=== PATIENT | male | born 1980 | race Caucasian/White ===

== ENCOUNTER 2021-03-14 14:00 | Outpatient (RCR) | payer OTHER, SELFPAY | END 2021-05-08 09:50 | disposition home or self-care (01) | LOC: HO.PT 14:00 | PROVIDERS: PCP Physician Assistant Medical; Visit Provider Physician Assistant Medical | DX: M25.561 Pain in right knee (principal) | CPT/HCPCS: 97014; 97110; 97112; 97140; 97161 ==

== ENCOUNTER → 2021-09-01 08:57 | Outpatient (REF) | payer OTHER, SELFPAY ==
--- NOTE | 2021-09-01 09:01 | CA_ITS ---
Acquisition Time: 2021-09-01 10:06:51 Total Exercise Time: 00:11:27 Test Indications: CP Medications: SEE CHART Protocol: PHU Max HR: 155 BPM 85% of Pred: 181 BPM Max BP: 178/072 mmHG Max Work Load: 13.4 METS Exercise stress test with exercise 11 min 27 sec of Phu protocol, achieving 86% MPHR, without anginal symptoms, with isolated PVCs and ventricular cuplets noted during stage 3 and 4, with normotensive response to exercise, without EKG changes meeting criteria for ischemia. Test reviewed with Dr Monsalve He reports having episodes of sudden rapid heart palpitations at times at home. PVCs are noted during his exercise. Call placed to PCP office with report and recommendation for a 30 day Cardiac event monitor for further evaluation. Referred By: Avelina Fink Overread By: REUBEN HAMEED
== END ==
LOC: HO.CARD 08:57
PROVIDERS: PCP Physician Assistant Medical; Visit Provider Family Medicine
DX: R07.9 Chest pain, unspecified (principal)
CPT/HCPCS: 93017

== ENCOUNTER 2021-09-15 18:47 | Outpatient (REF) | payer OTHER, SELFPAY ==
--- NOTE | ~2021-09-15 | MR_ITS ---
EXAMINATION: MRI RIGHT SHOULDER WITHOUT CONTRAST CLINICAL INFORMATION: Question rotator cuff tear. Decreased range of motion. Recent injury. COMPARISON: None. TECHNIQUE: MR images of the shoulder were obtained on a 1.5 Pebbles high-field strength scanner without intravenous contrast material. FINDINGS: ROTATOR CUFF: Intact. No muscle atrophy or fatty infiltration. BICEPS: Normal CORACOACROMIAL ARCH: The undersurface of the acromion is curved with no subacromial spur. Minimal acromioclavicular osteoarthritis. No significant subacromial subdeltoid bursal fluid. LABRUM/CAPSULE: A tear of the anteroinferior glenoid labrum propagates from the 2 o'clock position through the 5 o'clock position with irregular, intermediate signal intensity, and ill-defined margins, likely due to edema signal and maceration. Posterosuperiorly on images 11 and 12/24 of series 2, there is a separate band of abnormal increased signal intensity at the posterosuperior glenoid labrum which undercuts the articular cartilage and labral attachment to the glenoid rim and may correspond to a separate delaminating labral injury without significant displacement. The middle glenohumeral ligament and inferior glenohumeral ligament are both thickened and edematous, most consistent with sprains. No discrete tears are identified. Specifically, no appreciable humeral avulsion injuries are identified. GLENOHUMERAL JOINT/MARROW: As noted above, there is abnormal signal at the posterosuperior glenoid rim which undercuts the labral attachment and may correspond to focal delamination of the articular cartilage and glenoid labrum and this region. No discrete chondral defects. There is mild surrounding marrow edema signal. No discrete fractures are identified. Minimal subcortical cystic changes at the humeral head posterosuperiorly. MR/MR shoulder LT wo con IMPRESSION: 1. Intact rotator cuff. 2. Irregular tear of the anteroinferior glenoid labrum. 3. Glenohumeral capsular edema and thickening is most pronounced at the middle and inferior glenohumeral ligaments and most consistent with a capsular strain. No tears are identified. Adhesive capsulitis can also have this appearance. 4. Probable focal nondisplaced delaminated tear at the posterosuperior glenoid labrum, possibly concealed without extension to the articular surface.
== END 2021-09-15 18:48 | disposition home or self-care (01) ==
LOC: HO.MRI 18:47
PROVIDERS: Visit Provider Family Medicine
DX: M25.512 Pain in left shoulder (principal)
CPT/HCPCS: 73221

== ENCOUNTER → 2021-09-28 14:06 | Outpatient (REF) | payer OTHER, SELFPAY ==
--- NOTE | 2021-09-28 14:11 | HM_ITS ---
TEST PERFORMED: Cardiac event monitoring. ENROLLMENT PERIOD: 09/28/2021, to 10/28/2021; 30 days. REQUESTING PHYSICIAN: Dr. Monsalve. INDICATION: Palpitations. FINDINGS: In the above monitoring period, underlying rhythm was sinus. Rates ranged from 51 to 132 beats per minute. PACs noted with a very brief run; otherwise, nothing sustained. One episode of junctional rhythm, rate of 66/min during morning hours. The patient's symptoms including chest pain, palpitations correlated with sinus rhythm and mild sinus bradycardia. On 1 instance of racing/fluttering, correlates with the supraventricular ectopy. CONCLUSION: Study positive for underlying sinus rhythm, infrequent supraventricular ectopy. Otherwise unremarkable. Kilo Abdalla MD HS/XAVI / [id number] MTDD
== END ==
LOC: HO.CARD 14:06
PROVIDERS: Visit Provider Family Medicine
DX: R00.2 Palpitations (principal)
CPT/HCPCS: 93270

== ENCOUNTER 2022-01-25 08:10 | Emergency (ER) | payer OTHER, SELFPAY ==
--- NOTE | ~2022-01-25 | XR_ITS ---
EXAMINATION: XR SHOULDER, LEFT CLINICAL INFORMATION: Left shoulder pain status post fall. COMPARISON: None TECHNIQUE: AP external rotation, Grashey, scapular Y, and axillary views of the left shoulder. FINDINGS: The bones and soft tissues are normal. No fracture. Glenohumeral and acromioclavicular alignment is anatomic with normal joint space. No abnormal soft tissue calcifications. XR/XR shoulder LT min 2V IMPRESSION: Unremarkable left shoulder.
--- NOTE | ~2022-01-25 | XR_ITS ---
EXAMINATION: CR X-RAY HAND AND WRIST LEFT CLINICAL INFORMATION: Left hand and wrist pain status post fall. COMPARISON: None TECHNIQUE: 4 views of the left hand and wrist are obtained. An indicator arrow points to the fifth metacarpal. FINDINGS: There is no acute fracture or dislocation. The joint spaces are unremarkable. The carpal bones are normally aligned. The distal radius and ulna are intact. The soft tissues are unremarkable. XR/XR hand wrist LT IMPRESSION: Unremarkable left hand and wrist.
[2022-01-25 08:20] VITALS: BP 118/80; PULSE 63; RESP 18; TEMP 36.2; O2SAT 98; BMI 24.4
--- NOTE | 2022-01-25 09:40 | ED.GENADULT ---
HPI - General Adult General Chief complaint: Fall Stated complaint: fall l hand and shoulder inj Time Seen by Provider: 01/25/22 09:28 Source: patient Limitations: no limitations History of Present Illness HPI narrative: 41-year-old male who states last night he slipped on his regular home falling onto his left hand and shoulder. 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 Patient is concerned about his left hand that increases pain with range of motion. Pain 7/10. No prior injuries to the left hand symptoms mild to moderate. Patient denies loss consciousness recalls all events of the fall no other complaints at this time. Related Data Allergies Allergy/AdvReac Type Severity Reaction Status Date / Time clindamycin Allergy Rash Verified 01/25/22 08:23 Review of Systems Constitutional: Constitutional: Denies chills, Denies fever(s) and Denies headache(s) ENT: Denies headache(s) Cardiovascular: Cardiovascular: Denies chest pain Gastrointestinal: Gastrointestinal: Denies nausea and Denies vomiting Musculoskeletal: Musculoskeletal: Reports joint swelling Comments: Left shoulder pain left hand pain Neurologic: Denies headache(s) [facility] Social History Social History Advance Directives: No Physical Exam ED Vital Signs: Vital Signs - 24 hr 01/25/22 08:20 Temperature 97.2 F Pulse Rate 63 Respiratory Rate 18 Blood Pressure 118/80 Pulse Oximetry 98 Oxygen Delivery Method Room Air BMI result Body Mass Index 24.4 vital signs have been reviewed as normal and appeared to be correct. Blood pressure normal. Heart rate normal. Respiration rate normal. Temperature normal. Oxygen saturation normal. Appearance: Alert. Oriented X3. No acute distress. Head: Normal external exam. Normocephalic. Atraumatic. Eyes: PERRLA. EOMI. Conjunctiva and sclera normal. Eyelids normal. ENT: Pharynx normal. Uvula midline. Moist mucous membranes. CVS: Heart regular rate and rhythm no murmurs and rubs Respiratory: Breath sounds are clear to auscultation bilaterally. No accessory muscle use noted. Back: Full range of motion Skin: No ecchymosis noted over the left hand dorsum Extremities: Positive tenderness to the left hand pain increases with range of motion no obvious deformity pulses sensation intact positive diffuse tenderness to the left shoulder full range of motion. Neuro: Oriented X 3. No motor deficit. No sensory deficit. Reflexes normal. Course Course Course Narrative: Left shoulder fracture Contusion Left hand fracture Contusion Left hand sprain Medical Decision Making Imaging Data hand: Radiologist's impression: ? Chart Viewer Orders Diagnostics Subcategory All Activity ??:?? All Time ??:?? All Subcategories Filter Laboratory Imaging Microbiology Pathology Blood Bank Tests Cardiovascular Other Specialty DATE TYPE STATUS REF RANGE/AUTHOR Hx Today 08:50 Shoulder X-Ray Signed Leodan Smith Today 08:50 Hand/Wrist X-Ray Signed Leodan Smith 10/28/21 00:00 Diagnostic Report, External Cardiovascular Disease Kilo Abdalla STEFANIE - end of study report 09/15/21 19:40 Shoulder MRI Signed Bk Walters Ryan J ED 41, M?1980 MRN#? [id number] REG ER,?Emergency Minor Care??[facility] [place] Bed 5?-EMC5? 6ft 81.647kg BMI: 24.4kg/m? Fall Acc#? [id number] Resus Status Not Ordered No Hx Avail Allergies clindamycin Rash Problems No Data to Display Home Meds Prescription Monitoring Program No Data to Display Triage Note mechanical fall last night- left wrist and shoulder pain ED EMS Hand-Off No Data to Display Orders Snapshot IMAGING AND XRAYS XR shoulder LT min 2V Stat Completed XR hand wrist LT Stat Completed My Widget No Data to Display Lab Results Last 24 Hrs Most Recent No Data to Display Diagnostic Imaging Reports Shoulder X-Ray Signed Today Hand/Wrist X-Ray Signed Today Diagnostic Departmental Reports No Data to Display Vitals - Initial & Most Recent CURRENT Today 08:20 BP 118/80 Pulse 63 Resp 18 Temp 97.2 F O2 Sat 98 O2 Delivery Room Air Diagnostics Reports Bk Hand??41??M??1980 ? Allergy/Adv: clindamycin Close Shoulder X-Ray (Signed) Leodan Smith - 01/25/22 Hand/Wrist X-Ray (Signed) Leodan Smith - 01/25/22 Diagnostic Report, External Cardiovascular Disease Kilo Abdalla 10/28/21 Shoulder MRI (Signed) Bk Walters - 09/15/21 Launch?Image [address] [address] XRay Report Signed Patient: Bk Hand MR#: [id number] : 1980 Acct:[id number] Age/Sex: 41 / M ADM Date: 01/25/22 Loc: HO.ED Attending Dr: Ordering Physician: Generic ED Physician Date of Service: 01/25/22 Procedure(s): XR hand wrist LT Accession Number(s): [id number] cc: Generic ED Physician~ EXAMINATION: CR X-RAY HAND AND WRIST LEFT CLINICAL INFORMATION: Left hand and wrist pain status post fall.? COMPARISON: None? TECHNIQUE: 4 views of the left hand and wrist are obtained. An indicator arrow points to the fifth metacarpal.? FINDINGS: There is no acute fracture or dislocation. The joint spaces are unremarkable. The carpal bones are normally aligned. The distal radius and ulna are intact. The soft tissues are unremarkable.? XR/XR hand wrist LT IMPRESSION: Unremarkable left hand and wrist.? Dictated By: Leodan Smith MD Signed By: <Electronically signed by Leodan Smith MD in OV> 01/25/22 0901 DD/ 0850 TD/TT:? Complaint Evaluation Officer: EMI shoulder: Radiologist's impression: ? Chart Viewer Orders Diagnostics Subcategory All Activity ??:?? All Time ??:?? All Subcategories Filter Laboratory Imaging Microbiology Pathology Blood Bank Tests Cardiovascular Other Specialty DATE TYPE STATUS REF RANGE/AUTHOR Hx Today 08:50 Shoulder X-Ray Signed Leodan Smith Today 08:50 Hand/Wrist X-Ray Signed Leodan Smith 10/28/21 00:00 Diagnostic Report, External Cardiovascular Disease Kilo Abdalla [facility] [place] end of study report 09/15/21 19:40 Shoulder MRI Signed Bk Walters Ryan J ED 41, M?1980 MRN#? [id number] REG ER,?Emergency Minor Care??[facility] [place] Bed 5?-EMC5? 6ft 81.647kg BMI: 24.4kg/m? Fall Acc#? [id number] Resus Status Not Ordered No Hx Avail Allergies clindamycin Rash Problems No Data to Display Home Meds Prescription Monitoring Program No Data to Display Triage Note mechanical fall last night- left wrist and shoulder pain ED EMS Hand-Off No Data to Display Orders Snapshot IMAGING AND XRAYS XR shoulder LT min 2V Stat Completed XR hand wrist LT Stat Completed My Widget No Data to Display Lab Results Last 24 Hrs Most Recent No Data to Display Diagnostic Imaging Reports Shoulder X-Ray Signed Today Hand/Wrist X-Ray Signed Today Diagnostic Departmental Reports No Data to Display Vitals - Initial & Most Recent CURRENT Today 08:20 BP 118/80 Pulse 63 Resp 18 Temp 97.2 F O2 Sat 98 O2 Delivery Room Air Diagnostics Reports Bk Hand??41??M??1980 ? Allergy/Adv: clindamycin Close Shoulder X-Ray (Signed) Leodan Smith - 01/25/22 Hand/Wrist X-Ray (Signed) Leodan Smith - 01/25/22 Diagnostic Report, External Cardiovascular Disease Kilo Abdalla 10/28/21 Shoulder MRI (Signed) Bk Walters - 09/15/21 Launch?Image [place] [address] XRay Report Signed Patient: Bk Hand MR#: [id number] : 1980 Acct:[id number] Age/Sex: 41 / M ADM Date: 01/25/22 Loc: .ED Attending Dr: Ordering Physician: Generic ED Physician Date of Service: 01/25/22 Procedure(s): XR shoulder LT min 2V Accession Number(s): [id number] cc: Generic ED Physician~ EXAMINATION: XR SHOULDER, LEFT CLINICAL INFORMATION: Left shoulder pain status post fall.? COMPARISON: None? TECHNIQUE: AP external rotation, Grashey, scapular Y, and axillary views of the left shoulder. FINDINGS: The bones and soft tissues are normal. No fracture. Glenohumeral and acromioclavicular alignment is anatomic with normal joint space. No abnormal soft tissue calcifications.? XR/XR shoulder LT min 2V IMPRESSION: Unremarkable left shoulder. Dictated By: Leodan Smith MD Signed By: <Electronically signed by Leodan Smith MD in OV> 01/25/22 0859 DD/ 0850 TD/TT:? Complaint Evaluation Officer: Discharge Plan Discharge Clinical Impression: Contusion of hand, Sprain and strain of left hand, Contusion of left shoulder Patient Disposition: Home, Self-Care Instructions: Contusion in Adults (ED) Additional Instructions: X-ray of your left hand shoulder read by radiology is negative. Symptoms are consistent with a left hand left shoulder contusion and possible sprain of left hand rest ice elevation [id number] Motrin and/or Tylenol for pain. Follow-up with primary care symptoms persist with possible referral to orthopedics. Referrals: Fred Pulido MD [Physician] -
== END 2022-01-25 10:07 | disposition home or self-care (01) ==
PROVIDERS: Emergency Provider Emergency Medicine Emergency Medical Services; PCP Physician Assistant Medical
DX: S60.222A Contusion of left hand, initial encounter (principal); S40.012A Contusion of left shoulder, initial encounter; M79.602 Pain in left arm; W01.0XXA Fall on same level from slipping, tripping and stumbling without subsequent striking against object, initial encounter; Y93.9 Activity, unspecified; Y92.009 Unspecified place in unspecified non-institutional (private) residence as the place of occurrence of the external cause; Y99.9 Unspecified external cause status
CPT/HCPCS: 73030; 73110; 73130; 99283

== ENCOUNTER 2022-04-13 13:00 | Outpatient (RCR) | payer OTHER, SELFPAY ==
[2021-08-21 13:03] VITALS: BP 126/72; PULSE 73; O2SAT 97
== END 2022-06-13 07:35 | disposition home or self-care (01) ==
LOC: HO.PT 13:00
PROVIDERS: PCP Physician Assistant Medical; Visit Provider Physician Assistant
DX: M25.512 Pain in left shoulder (principal)
CPT/HCPCS: 97033; 97035; 97110; 97112; 97140; 97162; 97530

== ENCOUNTER 2023-04-08 08:49 | Outpatient (AMB) | payer OTHER, SELFPAY ==
--- NOTE | 2023-04-08 09:22 | A.OFFVIS_ITS ---
Intake Intake Visit Reasons: hydrocele Intake Note: NEW Patient presents today to established treatment for Hydrocele: Meds- None Allergies to Antibiotic- Clindamycin Blood Thinner- None Transplant Nurse Required: No Accompanied by: Self / Same As Patient Allergies clindamycin Allergy (Verified 04/08/23 09:28) Rash HPI HPI Comments History of Present Illness Details Bk is a 42 year old male who is here for evaluation for scrotal swelling The patient denies urinary symptoms of daytime urinary frequency, nocturia, hematuria, or dysuria history of left hydrocele, sp left hydrocelectomy 2014. States noticed right scrotal swelling about 2 years ago, no testicular pain had US by PCP and was told mild right hydrocele. He wants a vasectomy, one child, son about age 7. Vasectomy procedure was discussed at length with the patient. He was informed th at vasectomy is a safe, permanent, and effective form of control but there are risks involved. It may involve risk of hematoma, procedure failure which is rare, sperm granuloma which may cause mild pain, and congestion which may cause sense of pressure and generally resolves after several weeks. Also discussed is the reported post vasectomy pain syndrome with chronic testicular pain which is uncommon <5%. The patient was advised that it is necessary to use other types of control methods like condom for > 12 weeks and until semen is examined for analysis to make sure there is no more sperm in the semen which is done after 12 weeks post vasectomy. UA--leuk neg, blood neg Plan: Scrotal US. telehealth fu to review results, currently denies symptoms from hydrocele vasectomy consent signed, pt agrees to have done in the office with Dr. Martin [facility] Medical History (Updated 04/08/23 @ 10:28 by Alena Batres MD) Hydrocele Surgical History History of hydrocelectomy Hx of knee surgery Family History Father No problems noted. Mother No problems noted. Social History Alcohol intake: current Alcohol intake frequency: a few times a month Patient Tobacco Use Status: Never used Tobacco Review of Systems Const All systems reviewed & are unremarkable except as noted in HPI and below Reports no additional complaints Eyes Reports no additional complaints ENT Reports no additional complaints Card Denies dyspnea Resp Denies cough and Denies dyspnea GI Reports no additional complaints Musc Reports no additional complaints Skin/Breast Denies rash and Denies unusual bruising Neuro Reports no additional complaints Psych Reports no additional complaints Endo Reports no additional complaints Jacinto/Lymph Reports no additional complaints Aller/Immun Reports no additional complaints Physical Exam Const General: healthy appearing, no acute distress and well developed Orientation/consciousness: patient oriented x3 HEENT Head: Yes normocephalic and Yes atraumatic Eyes Conjunctivae: conjunctivae normal Neck Neck: Yes normal visual inspection Chest Chest palpation & inspection: normal inspection of the chest Resp Effort & Inspection: normal respiratory effort Cardio Rate: regular rate GI Inspection: Yes normal to inspection Palpation (GI): Soft to palpation Other: Right scrotal swelling no signs of cellulitis, nontender prostate deferred Penis: normal penis and circumcised Skin General skin exam: no rashes or lesions noted Neuro General: patient oriented x3 Extrem General: No pedal edema Psych Appearance: grossly normal Affect: normal affect Results AMB Urinalysis, Automated UA Leukoctes 0 Brisa/uL Last Edit by ALEX Hilliard on 04/08/23 09:31 UA Nitrite Negative Last Edit by ALEX Hilliard on 04/08/23 09:31 UA Urobilinogen 0.2 mg/dL Last Edit by ALEX Hilliard on 04/08/23 09:3 1 UA Protein 0 mg/dL Last Edit by ALEX Hilliard on 04/08/23 09:31 UA pH 6.5 Last Edit by ALEX Hilliard on 04/08/23 09:31 UA Blood 0 Elfego/uL Last Edit by ALEX Hilliard on 04/08/23 09:31 UA Specific [place] 1.010 Last Edit by ALEX Hilliard on 04/08/23 09: 31 UA Ketone Negative Last Edit by ALEX Hilliard on 04/08/23 09:31 UA Bilirubin 0 mg/dL Last Edit by ALEX Hilliard on 04/08/23 09:31 UA Glucose 0 mg/dL Last Edit by ALEX Hilliard on 04/08/23 09:31 Results Reviewed Results Reviewed: Laboratory Last Values Urine pH (Auto) 6.5 04/08/23 09:30 Specific [place] (Auto) 1.010 04/08/23 09:30 Urine Protein (Auto) 0 mg/dL 04/08/23 09:30 Glucose (UA)(Auto) 0 mg/dL 04/08/23 09:30 Urine Ketones (Auto) Negative 04/08/23 09:30 Urine Blood (Auto) 0 Elfego/uL 04/08/23 09:30 Urine Nitrite (Auto) Negative 04/08/23 09:30 Urine Bilirubin (Auto) 0 mg/dL 04/08/23 09:30 Urine Urobilinogen (Auto) 0.2 mg/dL 04/08/23 09:30 Leukocyte Esterase (Auto) 0 Brisa/uL 04/08/23 09:30 Assessment & Plan Assessment & Plan (1) Hydrocele: Code(s): N43.3 - Hydrocele, unspecified (2) Scrotal swelling: Code(s): N50.89 - Other specified disorders of the male genital organs (3) Vasectomy evaluation: Code(s): Z30.09 - Encounter for other general counseling and advice on contraception (4) Anxiety about health: Code(s): R45.89 - Other symptoms and signs involving emotional state Plan Scrotal US. telehealth fu to review results, currently denies symptoms from hydrocele vasectomy consent signed, pt agrees to have done in the office with Dr. Martin Orders: Orders AMB Urinalysis Automated Today Z13.9 - Encounter for screening, unspecified US scrotum Today N43.3 - Hydrocele, unspecified, N50.89 - Other specified disorders of the male genital organs Patient Instructions: The patient had an opportunity to ask questions regarding treatment plan. All questions were answered. Laboratory studies and physical exam results were discussed and reviewed in detail. No major barriers to understanding were identified. The patient expressed understanding and agreement with the above treatment plan. The patient is aware they should contact our office by phone for worsening of their current condition or the appearance of new symptoms. Compliance is encouraged with any medications and followup testing that is ordered. It is a privilege to be allowed the opportunity to participate in the urologic care of your patient. If you have any questions or concerns regarding treatment for the above conditions please do not hesitate to contact me. The office telephone contact is [phone]. This note is constructed in part using voice recognition software. While every effort has been made to ensure accuracy sweeper driver errors may have been included. Yours sincerely, Alena Batres MD Coding Level of Care Code New Pt Level 4 (33865) Diagnoses Hydrocele N43.3 Scrotal swelling N50.89 Vasectomy evaluation Z30.09 Anxiety about health R45.89
== END 2023-04-08 10:26 | disposition home or self-care (01) ==
PROVIDERS: PCP Physician Assistant Medical; Visit Provider Urology
DX: N43.3 Hydrocele, unspecified (principal); N50.89 Other specified disorders of the male genital organs; Z30.09 Encounter for other general counseling and advice on contraception; R45.89 Other symptoms and signs involving emotional state; Z13.9 Encounter for screening, unspecified
CPT/HCPCS: 99204

== ENCOUNTER → 2023-04-08 08:49 | Outpatient (BNVA) | payer OTHER, SELFPAY | PROVIDERS: PCP Physician Assistant Medical; Visit Provider Urology | DX: N43.3 Hydrocele, unspecified (principal); N50.89 Other specified disorders of the male genital organs; R45.89 Other symptoms and signs involving emotional state | CPT/HCPCS: 81003 ==

== ENCOUNTER 2023-04-29 16:38 | Emergency (ER) | payer OTHER, SELFPAY ==
--- NOTE | ~2023-04-29 | XR_ITS ---
EXAMINATION: 1. RADIOGRAPHS RIGHT KNEE 2. RADIOGRAPHS RIGHT TIBIA/FIBULA CLINICAL INFORMATION: Skiing accident COMPARISON: None TECHNIQUE: 4 views of the right knee and 2 views of the right tibia and fibula were obtained. FINDINGS: Comminuted, mildly displaced tibial plateau fracture. There is a small associated suprapatellar joint effusion. No gross fracture of the visualized distal femur. No fracture of the fibula. There is soft tissue swelling of the knee. XR/XR tibia fibula RT 2V IMPRESSION: Comminuted, mildly displaced tibial plateau fracture.
--- NOTE | ~2023-04-29 | XR_ITS ---
EXAMINATION: 1. RADIOGRAPHS RIGHT KNEE 2. RADIOGRAPHS RIGHT TIBIA/FIBULA CLINICAL INFORMATION: Skiing accident COMPARISON: None TECHNIQUE: 4 views of the right knee and 2 views of the right tibia and fibula were obtained. FINDINGS: Comminuted, mildly displaced tibial plateau fracture. There is a small associated suprapatellar joint effusion. No gross fracture of the visualized distal femur. No fracture of the fibula. There is soft tissue swelling of the knee. XR/XR knee RT 3V IMPRESSION: Comminuted, mildly displaced tibial plateau fracture.
--- NOTE | 2023-04-29 17:26 | ED.LOWEXIN ---
HPI - Extremity Injury (Lower) General Chief Complaint: Extremity Injury, Lower Stated Complaint: R knee pain, ski injury Time Seen by Provider: 04/29/23 17:59 Source: patient Mode of arrival: wheelchair Limitations: no limitations History of Present Illness HPI Narrative: Patient is a 43-year-old male with no reported past medical history presenting to emergency department for evaluation of right knee pain after a fall while skiing at a high speed prior to arrival. Has been unable to ambulate since the incident. Presented with a temporary splint for immobilization in place by skin piler. Denies numbness tingling or cold sensation to the foot. Related Data Previous Rx's Medication Instructions Recorded oxycodone 5 mg tablet 5 mg PO Q6H PRN pain #14 tabs 04/29/23 Allergies Allergy/AdvReac Type Severity Reaction Status Date / Time clindamycin Allergy Rash Verified 04/29/23 17:28 Review of Systems Review of Systems: Yes all other systems are reviewed and are negative PMFSH Past Medical History Attestation statement: The following information was validated with the patient. Source: old records reviewed Medical History Hydrocele Surgical History History of hydrocelectomy Hx of knee surgery Family History Family History Father No problems noted. Mother No problems noted. Social History Social History Alcohol intake: current Alcohol intake frequency: 0-2 drinks per day Patient Tobacco Use Status: Never used Tobacco Smoked in Last 30 Days: No Use of substances other than those prescribed or required for medical reasons: No Advance Directives: No Advance Directives Information Provided: No Physical Exam Vital Signs: Vital Signs: Last Vital Signs Temp 98 F 04/29/23 19:46 Pulse 76 04/29/23 19:46 Resp 19 04/29/23 19:46 BP 135/72 04/29/23 19:46 Pulse Ox 99 04/29/23 19:46 O2 Del Method Room Air 04/29/23 19:46 BMI result Body Mass Index 25.1 Appearance: Alert.?Oriented to person, place and time. No acute distress.?Normal affect. Neck: Normal inspection.? Neck supple.?? CVS: Heart sounds normal. Normal heart rate and rhythm.? Pulses normal.?? Respiratory: No respiratory distress.? Lung sounds clear to auscultation bilaterally?? Abdomen: Soft and non-tender. Normoactive bowel sounds. Skin: Skin warm and dry.? Normal skin color.? Extremities: No lower extremity edema.? No calf ttp. 2+ DP/PT pulse bilaterally. Tenderness upon palpation of the infrapatellar region over the tibial plateau Neuro: Moves all extremities spontaneously except for the right lower extremity. Sensation intact bilaterally. 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 Hasnt ambulated since incident In wheelchair, splint applied by skin piler. difficult to examine in triage XRs ordered Full HPI, ROS and PE to be performed by primary ED provider. Medications Administered Discontinued Medications Generic Name Dose Route Start Last Admin Trade Name Freq PRN Reason Stop Dose Admin Acetaminophen 650 mg 04/29/23 18:48 04/29/23 18:59 Acetaminophen 325 Mg Tablet PO 04/29/23 18:49 650 mg ONCE ONE Administration Oxycodone HCl 5 mg 04/29/23 18:48 04/29/23 19:00 Oxycodone Hcl Immed Release 5 Mg Tablet PO 04/29/23 18:49 5 mg ONCE ONE Administration Medical Decision Making Medical Decision Making MDM Narrative: Patient is a 43-year-old male with no reported past medical history presenting to emergency department for evaluation of traumatic right knee pain, XR imaging was obtained to evaluate for fracture/dislocation, comminuted tibial plateau fracture, mildly displaced, placed in a posterior long leg splint and extremity remained neurovascularly intact distally after application. Crutches provided. Differential Diagnosis Differential Diagnoses: The differential diagnosis associated with the presentation includes (Fracture, dislocation, ligamentous injury, sprain) Independent Interpretation I performed an independent interpretation of an: Plain X-Ray (Tibial plateau fracture) Radiology Impression Discussion of test interpretation with radiology: I have reviewed the radiologist's reading. Radiologist Impression: FINDINGS: Comminuted, mildly displaced tibial plateau fracture. There is a small associated suprapatellar joint effusion. No gross fracture of the visualized distal femur. No fracture of the fibula. There is soft tissue swelling of the knee. XR/XR tibia fibula RT 2V IMPRESSION: Comminuted, mildly displaced tibial plateau fracture. Independent Historian Clinical information obtained from an independent historian. History obtained from or confirmed by: Spouse (Present who confirms history) External Record Review External record reviewed: Other ([employer]) Prescription Management I considered prescription management with: Pain Medication Procedures Orthopedic Splinting/Casting Injury #1: Side: right Lower Extremity Immobilizer: posterior splint Other Orthopedic Equipment: crutches Additional Comments: Remained neurovascularly intact distally after application Critical Care Time Critical Care Time Critical Care Time: Yes Total Critical Care Time: 35 Attestation: I personally attest to this critical care time spent taking care of the patient exclusive of all other billable procedures was approximately 35 minutes including initial evaluation of patient, ordering tests, x-ray interpretation, pain management and re-evaluation, documentation, re-evaluation. Discharge Plan Discharge Clinical Impression: Closed fracture of tibial plateau Patient Disposition: Home, Self-Care Instructions: Crutch Instructions (ED) Additional Instructions: You can take ibuprofen 200 mg, 3 tablets (600mg) every 6-8 hours as needed for pain, in addition to Tylenol 500 mg, 2 tablets (1,000mg) every 4-6 hours as needed for pain, but not to exceed 3 doses daily (3,000mg).? For pain unrelieved by Tylenol/ibuprofen I have sent a prescription for oxycodone to your pharmacy. This is a narcotic medication. It can be addictive. May make you drowsy. You should not drive, drink alcohol, or work while taking this medication. Please be sure to rest, apply ice for 10-15 minutes 3-4 times daily, elevate the leg above the level of your chest. The splint must remain in place at all times until evaluated by orthopedics. You may contact the orthopedic department associated with this hospital their phone number has been provided to you. Prescriptions: New oxycodone 5 mg tablet 5 mg PO Q6H PRN (Reason: pain) Qty: 14 0RF Rx Instructions: Partial Fill upon patient request. Referrals: Fred Pulido MD [Physician] - Chelle Morgan PA-C [Primary Care Provider] - Interventions: ED Discharge Assessment Last Done: 04/29/23 20:17 Discharge Date/Time: 04/29/23 20:19
[2023-04-29 17:27] VITALS: BP 109/73; PULSE 67; RESP 18; TEMP 37.6; O2SAT 98; BMI 25.1
[2023-04-29] MEDS: Acetaminophen 325 MG TABLET 650 MG PO (18:59)
[2023-04-29] MEDS: oxyCODONE HCl Immed Release 5 MG TABLET PO (19:00)
[2023-04-29 19:46] VITALS: BP 135/72; PULSE 76; RESP 19; TEMP 36.6; O2SAT 99
--- NOTE | 2023-04-29 20:15 | PC.NURSE ---
this rn assumed care of pt @ 1900. pt medicated according to mar military education coordinator and claire anyi placed splint on R leg. pt tolerated moderately well noting pain when moving extremity. cms intact cap refill less than 2 seconds. military education coordinator and this rn assisted pt into wheelchair to utilize at discharge. pt reports pain upon change of position pt at bedside for discharge pt calm and cooperative. provided with discharge packet. pt verbalized understanding of discharge plan
== END 2023-04-29 20:19 | disposition home or self-care (01) ==
PROVIDERS: Emergency Provider Student in an Organized Health Care Education/Training Program; PCP Physician Assistant Medical
DX: S82.141A Displaced bicondylar fracture of right tibia, initial encounter for closed fracture (principal); M25.561 Pain in right knee; W00.0XXA Fall on same level due to ice and snow, initial encounter; Y93.23 Activity, snow (alpine) (downhill) skiing, snowboarding, sledding, tobogganing and snow tubing; Y92.89 Other specified places as the place of occurrence of the external cause; Y99.8 Other external cause status
CPT/HCPCS: 29505; 73562; 73590; 99283; 99284

== ENCOUNTER 2023-04-30 10:43 | Outpatient (AMB) | payer OTHER, SELFPAY ==
--- NOTE | 2023-04-30 11:03 | MHC.OFFVIS ---
Intake Intake Visit Reasons: Closed fracture of tibial plateau Rt Intake Note: Bk is a 43 year old male who presents today for a fracture care visit for an injury of the right knee. On 04/29/23 he was skiing at high speeds when he fell landing on the right knee. He was [place] [facility] [place] the [place] where he was placed in a Posterior Long Leg splint. Allergies clindamycin Allergy (Verified 04/29/23 17:28) Rash HPI Closed fracture of tibial plateau Rt HPI Details 43-year-old male who presents in the office today, as a new patient, for an evaluation of right knee pain. The patient presented to the ED on 04/29/2023 status post a fall while skiing at a high speed. X-rays obtained. He was placed in a long posterior leg splint with crutches provider. He was prescribed Oxycodone 5 mg PO Q6H PRN. 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 Patient has an allergy history, as follows: -Clindamycin; rash Patient is currently taking, as follows: -Oxycodone 5 mg PO Q6H PRN Patient has a medical history, as follows: -Hydrocele Patient has a surgical history, as follows: -History of hydrocelectomy -History of knee surgery PFSH Medical History Hydrocele Surgical History History of hydrocelectomy Hx of knee surgery Family History Father No problems noted. Mother No problems noted. Social History Alcohol intake: current Alcohol intake frequency: 0-2 drinks per day Patient Tobacco Use Status: Never used Tobacco Review of Systems Const All systems reviewed & are unremarkable except as noted in HPI and below Physical Exam Const General: cooperative and no acute distress Orientation/consciousness: patient oriented x3 HEENT Head: Yes normal to inspection, Yes normocephalic and Yes atraumatic Eyes General: appearance normal, both eyes and all related structures Neck Neck: Yes normal visual inspection and Yes no lymphadenopathy Resp Effort & Inspection: normal respiratory effort and able to speak in complete sentences Cardio Rate: regular rate Peripheral pulses: Peripheral pulses 2+ throughout GI Inspection: Yes normal to inspection Palpation (GI): Soft to palpation Skin General skin exam: no rashes or lesions noted Neuro General: patient oriented x3 Extrem Other: Right lower extremity: Compartments are soft and compressible. Skin is intact with no open wounds. Mild edema lateral proximal tibia. Able to dorsiflex and plantarflex. Sensation intact. Pedal pulse intact. Psych Mental Status: mental status grossly normal Office Procedures Casting/Splints Other Splint (long leg posterior splint ) Procedure code (CPT) selection complete Fracture Care Fracture Billing Code: Fracture Billing Code Assessment & Plan Assessment & Plan (1) Right medial tibial plateau fracture: Code(s): S82.131A - Displaced fracture of medial condyle of right tibia, initial encounter for closed fracture Qualifiers: Encounter type: initial encounter Fracture type: closed Qualified Code(s): S82.131A - Displaced fracture of medial condyle of right tibia, initial encounter for closed fracture (2) Skiing accident: Code(s): V00.328A - Other snow-ski accident, initial encounter Plan Mr. Hand is a 43-year-old male who presents in the office today, as a new patient, for an evaluation of right knee pain. The patient presented to the ED on 04/29/2023 status post a fall while skiing at a high speed. X-rays obtained. He was placed in a long posterior leg splint with crutches provider. He was prescribed Oxycodone 5 mg PO Q6H PRN. He states his pain in manageable when not moving but very painful when moving. 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 Patient has an allergy history, as follows: -Clindamycin; rash Patient is currently taking, as follows: -Oxycodone 5 mg PO Q6H PRN Patient has a medical history, as follows: -Hydrocele Patient has a surgical history, as follows: -History of hydrocelectomy -History of knee surgery I discussed in detail the procedure and what to expect pre and post operatively. We discussed the risks, benefits and alternatives to the surgery as well as the rehabilitation course. The risks; which include, but are not limited to infection, bleeding, nerve injury, ongoing pain, swelling, and stiffness, perioperative risk of injury to bones and soft tissues, and blood clots. I have answered all questions and with their understanding they have consented to move forward with a right tibal plateau ORIF to be performed by Dr. Fred Pulido. Follow up will be at the post operative appointment, or sooner if needed. The patient was educated he will remain non-weight bearing for 3 months post operative. He was placed back into the splint and an order for a stat CT scan was placed. The patient went for the CT scan upon leaving today's appointment. Plan for surgical intervention Saturday05/03/23 X-rays of the right tibia/fibula, obtained on 04/29/2023, revealed: Comminuted, mildly displaced tibial plateau fracture. Orders: Orders CT knee RT wo IV con Today S82.131A - Displaced fracture of medial condyle of right tibia, initial encounter for closed fracture Patient Instructions: Scribed by Ranjana Pulliam nuclear medicine medical director, for Marcella Reid PA-C on 04/30/2023 at 10:58 am, EST. Coding Level of Care Code New Pt Level 4 (40109) Diagnoses Closed fracture of medial portion of right tibial plateau, initial encounter S82.131A Encounter type: initial encounter Fracture type: closed Skiing accident V00.328A CPT Codes Fracture Care - Fracture Billing Code: Fracture Billing Code ([id number])
== END 2023-04-30 11:50 | disposition home or self-care (01) ==
PROVIDERS: PCP Physician Assistant Medical; Visit Provider Physician Assistant
DX: S82.131A Displaced fracture of medial condyle of right tibia, initial encounter for closed fracture (principal); V00.328A Other snow-ski accident, initial encounter
CPT/HCPCS: 99204

== ENCOUNTER → 2023-04-30 10:43 | Outpatient (BNVA) | payer OTHER, SELFPAY | PROVIDERS: PCP Physician Assistant Medical; Visit Provider Physician Assistant ==

== ENCOUNTER 2023-04-30 12:00 | Outpatient (REF) | payer OTHER, SELFPAY ==
--- NOTE | ~2023-04-30 | CT_ITS ---
EXAMINATION: CT KNEE WITHOUT CONTRAST, RIGHT CLINICAL INFORMATION: Right tibial plateau displaced fracture COMPARISON: X-ray right knee on 04/29/2023 TECHNIQUE: Multiple 2 mm axial images of the right foot were obtained from distal right tibia and fibula to right foot without IV contrast enhancement. Bone window and soft tissue window images were reconstructed. Coronal and Sagittal bone window images were also reconstructed from the axial image data. This CT examination was performed using dose optimization techniques as appropriate, variously including the following: *Automated exposure control *Adjustment of mA and/or kV according to patient size (this includes techniques or standardized protocols for targeted exams where dose is matched to indication/reason for exam; i.e. extremities or head) *Use of iterative reconstruction technique DLP: 174.05 mGy-cm FINDINGS: BONES: Markedly comminuted depressed fracture of the right lateral tibial plateau extending to the intercondylar eminence involving the anterior cruciate ligament insertion is seen with up to 0.42 cm in depression. Additional small displaced bone fragment is seen at anterior superior lateral corner of right lateral tibial plateau. Additional oblique vertical fracture proximal right tibial shaft is seen with mild posterior displacement. Small right suprapatellar traction spur is present. JOINTS: There is marked lateral subluxation of the right tibiofemoral joint by 1.3 cm. There is normal alignment of the right patellofemoral and proximal right tibiofibular joints. SOFT TISSUE: There is moderate right knee effusion, mean attenuation of 42 Hounsfield units, compatible with hemarthrosis. Muscular compartments are intact with normal attenuation, by normal fat planes. Neurovascular bundles are also surrounded by normal fat. No abnormal air collection is seen in the soft tissue. CT/CT knee RT wo IV con IMPRESSION: 1. Markedly comminuted depressed fracture of the right lateral tibial plateau extending to the intercondylar eminence involving the anterior cruciate ligament insertion. 2. Additional oblique vertical fracture of proximal right tibial shaft with mild posterior displacement. 3. Marked Lateral subluxation of the right tibiofemoral joint. 4. Moderate right knee hemarthrosis.
== END 2023-04-30 12:01 | disposition home or self-care (01) ==
LOC: HO.CT 12:00
PROVIDERS: Visit Provider Physician Assistant
DX: S82.131A Displaced fracture of medial condyle of right tibia, initial encounter for closed fracture (principal)
CPT/HCPCS: 73700

== ENCOUNTER 2024-03-12 09:02 | Outpatient (RCR) | payer OTHER, SELFPAY | END 2024-03-12 11:16 | disposition home or self-care (01) | LOC: HO.PT 09:02 | PROVIDERS: PCP Physician Assistant Medical; Visit Provider Orthopaedic Surgery | DX: S82.141D Displaced bicondylar fracture of right tibia, subsequent encounter for closed fracture with routine healing (principal) | CPT/HCPCS: 97014; 97110; 97112; 97116; 97140; 97162; 97530; 97535 ==